=== PATIENT | male | born 1965 | race Caucasian/White ===

== ENCOUNTER 2016-10-10 07:18 | Emergency (ER) | payer OTHER ==
[~2016-10-10] VITALS: Ht 170.2 cm; Wt 90.7 kg
[2016-10-10 07:29] VITALS: BP 167/109
--- NOTE | 2016-10-10 08:04 | ED UPPER/LOWER EXTREMITY COMPL ---
History of Present Illness General Chief Complaint: Upper Extremity Injury Stated Complaint: RT SHOULDER/UPPER ARM PAIN S/P FALL YESTERDAY Source: patient Exam Limitations: no limitations Vital Signs & Intake/Output Vital Signs & Intake/Output Vital Signs Date Time Temp Pulse Resp B/P Pulse O2 O2 Flow FiO2 Ox Delivery Rate 10/10 728 97.7 73 20 167/109 96 Room Air Allergies Coded Allergies: No Known Allergies (10/10/16) Reconcile Medications Naproxen (Naprosyn) 500 MG TABLET 1 TAB PO BID PRN pain and inflammation Triage Note: PT STATES HE FELL ON THE ICE YESTERDAY MORNING INJURING RIGHT UPPER ARM. DENIES HEADSTRIKE. Triage Nurses Notes Reviewed? yes HPI: This patient is a 51-year-old male who presented to the emergency department today for evaluation of right arm pain status post fall on ice yesterday. The patient reported that he was walking, lost his balance, and fell onto his right arm. The patient reported that yesterday the pain got up to approximately a 9 out of 10 and has been throbbing. He reported that he put heat on the area and took 2 Advil tablets with a lot of relief of symptoms. The patient reported that he woke up this morning and noticed that his hands seemed swollen. The patient reported that he is still having pain in his arm and it is difficult to lift his arm at his shoulder. He denied any numbness or tingling in his hand. The pain has been constant since onset and worse with movement. He denied any elbow or wrist pain. He denied any head strike or loss of consciousness. (TASHA BASHIR PA-C) Past History Travel History Traveled to [place] past 21 day No Medical History Any Pertinent Medical History? see below for history Gastrointestinal: GERD Surgical History Surgical History: non-contributory Psychosocial History What is your primary language Mozambican Tobacco Use: Current Not Daily Daily Tobacco Use Amount/Type: =< 4 Cigarettes daily ETOH Use: denies use Illicit Drug Use: denies illicit drug use Family History Hx Contributory? No (TASHA BASHIR PA-C) Review of Systems Review of Systems Constitutional: Reports: no symptoms. EENTM: Reports: no symptoms. Respiratory: Reports: no symptoms. Cardiovascular: Reports: no symptoms. Gastrointestinal/Abdominal: Reports: no symptoms. Musculoskeletal: Reports: see HPI. Skin: Reports: no symptoms. Neurological/Psychological: Reports: no symptoms. All Other Systems: Reviewed and Negative (KRYSTEN TURPIN,TASHA) Physical Exam Physical Exam General Appearance: well developed/nourished, no apparent distress, alert, awake Comments: Well-developed well-nourished person in no acute distress HEENT: Normal EENT exam, head normocephalic/atraumatic Nose is atraumatic Neck: Supple. No midline tenderness. Full range of motion Back: Normal gait Respiratory: No respiratory distress. Speaking in full sentences Right upper extremity: No effusions overlying erythema or ecchymosis to the joint spaces. No bony or muscular deformities noted. Full range of motion at the wrist and elbow. Range of motion at the shoulder limited with abduction. No clavicular step-offs. Tenderness to palpation over the anterior aspect of the humerus. Radial brachial pulses 2+ and strong. Capillary refill less than 2 seconds Neuro: Alert oriented x3, cranial nerves II through XII grossly intact. Skin: No appreciable rash on exposed skin, skin is warm and dry. Psych: Mood and affect is normal (KRYSTEN TURPIN,TASHA) Progress Differential Diagnosis: arterial insufficiency, cellulitis, CHF, compartment syndrome, contusion, dislocation, DVT, fracture, gout, septic arthritis, sprain, tendon injury Plan of Care: Orders Procedure Date/time Status XRY-HUMERUS, RIGHT 10/10 729 Active Diagnostic Imaging: Viewed by Me: Radiology Read. Discussed w/RAD: Radiology Read. Radiology Impression: PATIENT: JOSE MEDINA JR PRESENT AGE: 51 PATIENT ACCOUNT NO: [id number] : 65 LOCATION: [facility] ORDERING PHYSICIAN: TASHA BASHIR PA-C SERVICE DATE: 10/10/16 EXAM TYPE: RAD - XRY-HUMERUS, RIGHT EXAMINATION: XR HUMERUS, RIGHT CLINICAL INFORMATION: Trauma. Evaluate for fracture. COMPARISON: None TECHNIQUE: AP and lateral views of the right humerus. FINDINGS: Bones have normal alignment at the right shoulder. The subacromial space is normal. The humeral head is well- positioned over the intact glenoid. No evidence of humerus fracture or focal soft tissue swelling. Osseous alignment is maintained at the elbow. However, the elbow is suboptimally evaluated on these radiographs focused on the humerus. IMPRESSION: No acute findings. No evidence of humeral fracture. DICTATED BY: DONN ANDUJAR MD DATE/TIME DICTATED:10/10/16805 MARKETING CLERK:SHERLY DATE/TIME TRANSCRIBED:10/10/16805 CONFIDENTIAL, DO NOT COPY WITHOUT APPROPRIATE AUTHORIZATION. <Electronically signed in Other Vendor System> SIGNED BY: DONN ANDUJAR MD 10/10/16810 (TASHA BASHIR PA-C) Departure Departure Disposition: HOME OR SELF CARE Condition: Stable Clinical Impression Primary Impression: Muscle strain, upper arm Qualifiers: Encounter type: initial encounter Laterality: right Qualified Code: S46.911A - Strain of unspecified muscle, fascia and tendon at shoulder and upper arm level, right arm, initial encounter Referrals: SOULEYMANE BURR MD PATIENT HAS NO PRIMARY CARE DR (PCP/Family) Additional Instructions: Take medication for pain as directed. Please rest your arm and use the sling provided to your in the emergency Department for extra support. Ice the affected area for 15-20 minutes, 3-4 times a day. Elevate your arm when possible. Please call the orthopedic physician whose information has been provided to you in this packet for further evaluation. Return for any worsening symptoms or concerns. Departure Forms: Customer Survey General Discharge Information Prescriptions: Current Visit Scripts Naproxen (Naprosyn) 1 TAB PO BID PRN pain and inflammation #20 TAB (TASHA BASHIR PA-C) PA/[employer] OPERATOR Co-Sign Statement Statement: ED Attending supervision documentation- [] I saw and evaluated the patient. I have also reviewed all the pertinent lab results and diagnostic results. I agree with the findings and the plan of care as documented in the PA's/[employer] OPERATOR's documentation. [X] I have reviewed the ED Record and agree with the PA's/[employer] OPERATOR's documentation. [] Additions or exceptions (if any) to the PAs/[employer] OPERATOR's note and plan are summarized below: [] (RADHA SOLORIO,TONEY)
--- NOTE | 2016-10-10 08:11 | RADIOLOGY REPORT ---
EXAMINATION: XR HUMERUS, RIGHT CLINICAL INFORMATION: Trauma. Evaluate for fracture. COMPARISON: None TECHNIQUE: AP and lateral views of the right humerus. FINDINGS: Bones have normal alignment at the right shoulder. The subacromial space is normal. The humeral head is well-positioned over the intact glenoid. No evidence of humerus fracture or focal soft tissue swelling. Osseous alignment is maintained at the elbow. However, the elbow is suboptimally evaluated on these radiographs focused on the humerus. IMPRESSION: No acute findings. No evidence of humeral fracture.
[2016-10-10] MEDS ORDERED: NAPROSYN500 M1 PO (08:29)
== END 2016-10-10 08:51 ==
LOC: ERH 07:18
DX: S46.911A Strain of unspecified muscle, fascia and tendon at shoulder and upper arm level, right arm, initial encounter (principal); W00.0XXA Fall on same level due to ice and snow, initial encounter
CPT/HCPCS: 73060-RT